=== PATIENT | male | born 1945 | race African-American/Black ===

== ENCOUNTER 2020-06-04 | Emergency (ER) | payer MEDICARE ==
[~2020-06-04] MED LIST: NORVASC10 M1 PO; VISTARIL25 MG PO
[2020-06-04 01:00] LABS: HEMATOCRIT 26.1 % (39.0-50.0); HEMOGLOBIN 7.9 g/dl (14.0-18.0); IMMATURE GRANULOCYTES 0.9 % (0.0-5.0); MEAN CELL VOLUME 94.6 fL CALC (80.0-100.0); MEAN CORPUSCULAR HGB 28.6 pG CALC (26.0-32.0); MEAN CORPUSCULAR HGB CONC 30.3 g/dL CAL (32.0-36.0); NEUT# 5.52 thou/uL (1.82-7.42); RED BLOOD COUNT 2.76 mill/uL (4.70-6.10); RED CELL DISTRI WIDTH 15.9 % (11.5-15.5)
[2020-06-04 01:13] LABS: ALBUMIN 3.5 g/dL (3.2-5.0); BILIRUBIN, TOTAL 0.5 mg/dL (0.0-1.4); TOTAL PROTEIN 6.8 g/dL (6.3-8.2)
[2020-06-04 01:17] LABS: ACT PARTIAL THROMBO TIME 31.2 SECONDS (20.0-32.5); INTERNATIONAL NORMALIZED RATIO 1.3 RATIO (0.7-1.3)
[2020-06-04 01:24] LABS: CREATININE 20.2 mg/dL (0.7-1.3); POTASSIUM 6.9 mmol/l (3.5-5.1)
[2020-06-04] MEDS ORDERED: VENTOLIN2 MG INHW/SPAC (01:43)
[2020-06-04] MEDS ORDERED: KLOR-CON M2020 MEQ PO (01:44)
[2020-06-04] MEDS ORDERED: LASIX40 MG PO (01:44)
[2020-06-04] MEDS ORDERED: ELIQUIS5 MG PO (01:45)
[2020-06-04] MEDS ORDERED: LOSARTAN POTASS50 MG PO (01:45)
[2020-06-04] MEDS ORDERED: DIAZEPAM5 MG PO (01:46)
[2020-06-04] MEDS ORDERED: COREG6.25 MG PO (01:46)
== END 2020-06-04 03:15 ==
DX: N17.9 Acute kidney failure, unspecified (principal); I11.0 Hypertensive heart disease with heart failure; I50.9 Heart failure, unspecified; K85.90 Acute pancreatitis without necrosis or infection, unspecified; D64.9 Anemia, unspecified; E87.5 Hyperkalemia; E87.2 Acidosis; I48.91 Unspecified atrial fibrillation; J44.9 Chronic obstructive pulmonary disease, unspecified; G40.909 Epilepsy, unspecified, not intractable, without status epilepticus; Z20.822 Contact with and (suspected) exposure to COVID-19

== ENCOUNTER 2020-11-26 17:26 | Emergency (ER) | payer MEDICARE ==
[~2020-11-26] VITALS: Ht 167.6 cm; Wt 70.0 kg
[~2020-11-26 17:26] MED LIST changes: +COREG6.25 MG PO; +DIAZEPAM5 MG PO; +ELIQUIS5 MG PO; +KLOR-CON M2020 MEQ PO; +LASIX40 MG PO; +LOSARTAN POTASS50 MG PO; +VENTOLIN2 MG INHW/SPAC
[2020-11-26] MEDS ORDERED: AMIODARONE200 MG PO (17:50)
[2020-11-26] MEDS ORDERED: CLONIDINE0.1 MG PO (17:51)
[2020-11-26] MEDS ORDERED: ASPIRIN81 MG PO (17:51)
[2020-11-26 18:38] LABS: HEMATOCRIT 37.9 % (39.0-50.0); HEMOGLOBIN 12.2 g/dl (14.0-18.0); IMMATURE GRANULOCYTES 0.4 % (0.0-5.0); MEAN CELL VOLUME 95.5 fL CALC (80.0-100.0); MEAN CORPUSCULAR HGB 30.7 pG CALC (26.0-32.0); MEAN CORPUSCULAR HGB CONC 32.2 g/dL CAL (32.0-36.0); NEUT# 3.63 thou/uL (1.82-7.42); RED BLOOD COUNT 3.97 mill/uL (4.70-6.10); RED CELL DISTRI WIDTH 13.5 % (11.5-15.5)
[2020-11-26 19:00] LABS: BILIRUBIN, TOTAL 0.9 mg/dL (0.0-1.4); POTASSIUM 4.6 mmol/l (3.5-5.1)
[2020-11-26 20:07] LABS: ACT PARTIAL THROMBO TIME 33.9 SECONDS (20.0-32.5); INTERNATIONAL NORMALIZED RATIO 1.2 RATIO (0.7-1.3); PROTHROMBIN TIME 12.1 SECONDS (9.0-12.5)
[2020-11-26 23:46] VITALS: BP 166/56
== END 2020-11-27 00:17 | disposition short-term general hospital (02) ==
LOC: ED 17:26
PROVIDERS: Emergency Medicine
DX: U07.1 COVID-19 (principal); R79.89 Other specified abnormal findings of blood chemistry; I12.0 Hypertensive chronic kidney disease with stage 5 chronic kidney disease or end stage renal disease; N18.6 End stage renal disease; I48.91 Unspecified atrial fibrillation; G40.909 Epilepsy, unspecified, not intractable, without status epilepticus; J44.9 Chronic obstructive pulmonary disease, unspecified; Z79.01 Long term (current) use of anticoagulants; Z99.2 Dependence on renal dialysis